=== PATIENT | female | born 1985 | race Caucasian/White ===

== ENCOUNTER 2020-11-16 19:39 | Observation (INO) | payer MEDICAID ==
[~2020-11-16] VITALS: Ht 157.5 cm; Wt 71.7 kg
[~2020-11-16 19:39] MED LIST: CALCIUM; FERR325T6 PO; PNV1TABL50 PO
[2020-11-16] MEDS ORDERED: LACTATED RINGERS 1,000 ML IV NR (20:45)
[2020-11-16 21:25] LABS: CLARITY URINE CLOUDY (CLEAR); COLOR URINE YELLOW (YELLOW); KETONES URINE NEGATIVE (NEGATIVE); LEUKOCYTE ESTERASE URINE NEGATIVE (NEGATIVE); NITRITE URINE NEGATIVE (NEGATIVE); OCCULT BLOOD URINE NEGATIVE (NEGATIVE); PROTEIN URINE NEGATIVE (NEGATIVE); SPECIFIC GRAVITY URINE 1.012 (1.005-1.030)
[2020-11-30] MEDS ORDERED: IBUP-2030 PO (06:10)
== END 2020-11-16 22:45 | disposition home or self-care (01) ==
LOC: 8 EST LDRP 19:39
PROVIDERS: ADMIT Obstetrics & Gynecology; ATTEND Obstetrics & Gynecology
DX: O36.8130 Decreased fetal movements, third trimester, not applicable or unspecified (principal); Z20.822 Contact with and (suspected) exposure to COVID-19; Z3A.37 37 weeks gestation of pregnancy
CPT/HCPCS: 59025; 76805; 76818; 81003; 87426; 96360; G0378; 96361; 99281

== ENCOUNTER 2020-11-20 02:03 | Observation (INO) | payer MEDICAID ==
[~2020-11-20] VITALS: Ht 157.5 cm; Wt 71.7 kg
[2020-11-20] MEDS ORDERED: LACTATED RINGERS 1,000 ML IV SCH (03:45)
[2020-11-20 04:07] LABS: CLARITY URINE CLOUDY (CLEAR); COLOR URINE YELLOW (YELLOW); KETONES URINE 1+ (NEGATIVE); LEUKOCYTE ESTERASE URINE NEGATIVE (NEGATIVE); NITRITE URINE NEGATIVE (NEGATIVE); OCCULT BLOOD URINE NEGATIVE (NEGATIVE); PROTEIN URINE NEGATIVE (NEGATIVE); SPECIFIC GRAVITY URINE 1.018 (1.005-1.030)
[2020-11-20] MEDS ORDERED: ACETAMINOPHEN 500MG TABLET PO NR (04:15)
== END 2020-11-20 07:10 | disposition home or self-care (01) ==
LOC: 8 EST LDRP 02:03
PROVIDERS: ADMIT Obstetrics & Gynecology; ATTEND Obstetrics & Gynecology
DX: O26.893 Other specified pregnancy related conditions, third trimester (principal); R10.10 Upper abdominal pain, unspecified; O99.891 Other specified diseases and conditions complicating pregnancy; M54.9 Dorsalgia, unspecified; Z3A.38 38 weeks gestation of pregnancy
CPT/HCPCS: 59025; 81003; 96360; 96361; G0378; 99281

== ENCOUNTER → 2020-11-25 | Outpatient (CLI) | payer MEDICAID ==
[~2020-11-25] MED LIST changes: +IBUP-2030 PO
== END | disposition home or self-care (01) ==
LOC: LAB 10:30
PROVIDERS: ATTEND Obstetrics & Gynecology
DX: Z01.812 Encounter for preprocedural laboratory examination (principal); Z20.822 Contact with and (suspected) exposure to COVID-19
CPT/HCPCS: 87426

== ENCOUNTER 2020-11-27 07:16 | Inpatient (IN) | payer MEDICAID ==
[~2020-11-27] VITALS: Ht 157.5 cm; Wt 71.2 kg
[~2020-11-27 07:16] MED LIST changes: -IBUP-2030 PO
[2020-11-27] MEDS ORDERED: NALOXONE HCL 0.4 MG/ML 1ML VIAL IM PRN (07:45)
[2020-11-27] MEDS ORDERED: METHYLERGONOVINE MALEATE 0.2 MG/ML IM PRN (07:45)
[2020-11-27] MEDS ORDERED: CARBOPROST TROMETHAMINE 250 MCG/ML AMPUL IM PRN (07:45)
[2020-11-27] MEDS: LACTATED RINGERS 1,000 ML IV SCH ×2 (08:15→09:55)
[2020-11-27] MEDS ORDERED: CITRIC ACID/SODIUM CITRATE SOLN 30ML UDC PO SCH (08:30)
[2020-11-27 08:40] LABS: BASOPHILS % 0.4 % (0.0-2.0); EOSINOPHILS % 0.9 % (0.0-5.0); HEMATOCRIT. 34.4 % (36.0-48.0); HEMOGLOBIN. 11.6 g/dL (12.0-16.0); LYMPHOCYTES % 32.8 % (20.0-50.0); MEAN CORPUSCULAR HEMOGLOBIN 29.9 pg (28.0-32.0); MEAN CORPUSCULAR VOLUME 88.4 fL (81.0-99.0); MEAN PLATELET VOLUME 8.6 fl (7.4-10.4); MONOCYTES % 8.3 % (2.0-8.0); NEUTROPHILS % 57.6 % (40.0-76.0); PLATELET 254 x1000/uL (130-400); RED BLOOD CELL COUNT 3.89 mill/uL (4.2-5.4); RED CELL DISTRIBUTION WIDTH 14.1 % (11.6-14.6)
[2020-11-27 08:59] LABS: *AMPHETAMINES SCREEN URINE NEGATIVE (NEGATIVE); *BARBITURATES SCREEN URINE NEGATIVE (NEGATIVE); *BENZODIAZEPINES SCREEN URINE NEGATIVE (NEGATIVE); *COCAINE SCREEN URINE NEGATIVE (NEGATIVE); CANNABINOID URINE SCREEN NEGATIVE (NEGATIVE); METHADONE URINE SCREEN NEGATIVE (NEGATIVE); OPIATES URINE SCREEN NEGATIVE (NEGATIVE)
[2020-11-27 09:00] LABS: PHENCYCLIDINE URINE SCREEN NEGATIVE (NEGATIVE)
[2020-11-27 09:06] LABS: CLARITY URINE CLOUDY (CLEAR); COLOR URINE YELLOW (YELLOW); KETONES URINE 1+ (NEGATIVE); LEUKOCYTE ESTERASE URINE NEGATIVE (NEGATIVE); NITRITE URINE NEGATIVE (NEGATIVE); OCCULT BLOOD URINE NEGATIVE (NEGATIVE); PH URINE 7.5 (4.5-8.0); PROTEIN URINE NEGATIVE (NEGATIVE); SPECIFIC GRAVITY URINE 1.014 (1.005-1.030)
[2020-11-27] MEDS ORDERED: FENTANYL CITRATE/PF 50MCG/ML 2ML VIAL ONE (09:19)
[2020-11-27] MEDS ORDERED: PHENYLEPHRINE HCL 10 MG/ML 1ML (IV VIAL) IV ONE (09:19)
[2020-11-27] MEDS ORDERED: CEFAZOLIN SODIUM 1000MG/VIAL ONE (09:19)
[2020-11-27] MEDS ORDERED: ONDANSETRON HCL 4MG/2ML INJ ONE (09:19)
[2020-11-27] MEDS ORDERED: OXYTOCIN 10 UNITS/ML 1ML ONE (09:19)
[2020-11-27] MEDS ORDERED: MORPHINE SULFATE/PF 1MG/ML 10ML AMP ONE (09:19)
[2020-11-27] MEDS ORDERED: EPHEDRINE SULFATE 50MG/ML VIAL ONE (09:19)
[2020-11-27] MEDS ORDERED: SODIUM CHLORIDE 0.9% 10ML VIAL ONE (09:22)
[2020-11-27 09:47] LABS: INR 0.9; PARTIAL THROMBOPLASTIN TIME 25.2 sec (23.4-31.0); PROTHROMBIN TIME 10.2 sec (9.6-11.0)
[2020-11-27] MEDS ORDERED: DIPHENHYDRAMINE 50MG/ML VIAL ONE (10:09)
[2020-11-27] MEDS ORDERED: KETOROLAC 60MG/2ML VIAL IM ONE (10:10)
[2020-11-27] MEDS ORDERED: NALOXONE HCL 0.4 MG/ML 1ML VIAL IV PRN (10:45)
[2020-11-27] MEDS ORDERED: BUTORPHANOL TARTRATE 2 MG/ML VIAL IV PRN (10:45)
[2020-11-27] MEDS ORDERED: DIPHENHYDRAMINE 50MG/ML VIAL IV PRN (10:45)
[2020-11-27] MEDS: DEXT 5%/LR + PITOCIN 20UNITS/L 1,000 ML IV SCH ×2 (11:06→15:51)
[2020-11-27 11:24] LABS: HEPATITIS B SURFACE ANTIGEN NEGATIVE
[2020-11-27 13:35] VITALS: BP 90/45
[2020-11-27 14:05] VITALS: BP 90/50
[2020-11-27] MEDS: KETOROLAC 30MG/ML VIAL IV SCH ×2 (15:52→21:52)
[2020-11-27 16:00] VITALS: BP 95/34
[2020-11-27 16:05] VITALS: BP 90/45
[2020-11-27 20:00] VITALS: BP 93/51
[2020-11-28] VITALS (9 sets, daily range): BP systolic 80–94; BP diastolic 39–60
[2020-11-28] MEDS ORDERED: KETOROLAC 30MG/ML VIAL IV SCH (03:45)
[2020-11-28] MEDS: KETOROLAC 30MG/ML VIAL IV SCH (03:49)
[2020-11-28] MEDS: LACTATED RINGERS 1,000 ML IV SCH (04:10)
[2020-11-28] MEDS ORDERED: AMMONIA INHALATION 1EA INH ONE (05:29)
[2020-11-28] MEDS ORDERED: HEMORRHOIDAL SUPP PR PRN (05:45)
[2020-11-28] MEDS ORDERED: IBUPROFEN 800MG TABLET PO PRN (05:45)
[2020-11-28] MEDS ORDERED: LANOLIN OINT 7GM TUBE TOP PRN (05:45)
[2020-11-28] MEDS ORDERED: DIPHENHYDRAMINE 25MG CAPSULE PO PRN (05:45)
[2020-11-28] MEDS ORDERED: BISACODYL 10MG SUPP PR PRN (05:45)
[2020-11-28] MEDS ORDERED: IBUPROFEN 400MG TABLET PO PRN (05:45)
[2020-11-28] MEDS ORDERED: ACETAMINOPHEN WITH CODEINE 300/30MG TABLET PO PRN (05:45)
[2020-11-28] MEDS ORDERED: DEXT 5%/LR + PITOCIN 20UNITS/L 1,000 ML IV SCH (06:00)
[2020-11-28] MEDS ORDERED: PRENATAL VIT/FE FUMARATE/FA TABLET PO SCH (09:00)
[2020-11-28] MEDS ORDERED: AMMONIA INHALATION 1EA INH NR (15:00)
[2020-11-28] MEDS ORDERED: NALOXONE HCL 0.4MG/ML VIAL IV PRN (15:00)
[2020-11-28 15:59] LABS: BASOPHILS % 0.3 % (0.0-2.0); EOSINOPHILS % 0.3 % (0.0-5.0); HEMOGLOBIN. 9.8 g/dL (12.0-16.0); LYMPHOCYTES % 23.4 % (20.0-50.0); MEAN CORPUSCULAR HEMOGLOBIN 29.7 pg (28.0-32.0); MEAN CORPUSCULAR VOLUME 87.6 fL (81.0-99.0); MEAN PLATELET VOLUME 8.4 fl (7.4-10.4); MONOCYTES % 5.8 % (2.0-8.0); NEUTROPHILS % 70.2 % (40.0-76.0); PLATELET 225 x1000/uL (130-400); RED BLOOD CELL COUNT 3.31 mill/uL (4.2-5.4); RED CELL DISTRIBUTION WIDTH 13.9 % (11.6-14.6)
[2020-11-28] MEDS: DOCUSATE SODIUM 100MG CAPSULE PO SCH (21:28)
[2020-11-29 05:45] VITALS: BP 98/61
[2020-11-29 08:00] VITALS: BP 95/50
[2020-11-29] MEDS: FERROUS SULFATE 325MG TABLET PO SCH ×3 (09:17→17:26)
[2020-11-29 15:10] VITALS: BP 98/48
[2020-11-29] MEDS: DOCUSATE SODIUM 100MG CAPSULE PO SCH (20:47)
[2020-11-29 22:00] VITALS: BP 99/58
[2020-11-30 04:20] VITALS: BP 98/61
[2020-11-30] MEDS ORDERED: IBUP-2030 PO (06:10)
[2020-11-30 08:00] VITALS: BP 96/53
== END 2020-11-30 12:55 | disposition home or self-care (01) | DRG 539 ==
LOC: 8 EST LDRP 07:16 → OBSVTOIN 07:16 → 8EST 13:30
PROVIDERS: ADMIT Obstetrics & Gynecology; ATTEND Obstetrics & Gynecology
PROC: 10D00Z1 Extraction of Products of Conception, Low, Open Approach (ICD-10-PCS; principal; 2020-11-30)
PROC: 0UB70ZZ Excision of Bilateral Fallopian Tubes, Open Approach (ICD-10-PCS; 2020-11-30)
DX: O34.211 Maternal care for low transverse scar from previous cesarean delivery (principal); O99.02 Anemia complicating childbirth; Z30.2 Encounter for sterilization; Z37.0 Single live birth; Z3A.39 39 weeks gestation of pregnancy
CPT/HCPCS: 36415; 80305; 81003; 85025; 86592; 86703; 86762; 86850; 86900; 86920; 87340; 88302; 88307; 99281; J0690; J1200; J1885; J2274; J2370; J2405; J2590; J3010; J3490; J7120